=== PATIENT | female | born 1970 ===

== ENCOUNTER 2021-09-04 06:58 | Day surgery (SDC) | payer OTHER ==
[~2021-09-04] VITALS: Ht 157.5 cm; Wt 56.7 kg
[~2021-09-04 06:58] MED LIST: ARMOUR THYROID30 M1 PO; BIOTIN5000 MCG PO; ENDOMETRIN100 MG PO; MELATONIN1 MG PO; PROBIOTIC1 EAC4 PO; VITAMIN C100 MG PO; VITAMIN D PO
== END 2021-09-04 16:00 | disposition home or self-care (01) ==
LOC: CIR.AMB 06:58
PROVIDERS: ATTEND Orthopaedic Surgery Hand Surgery
DX: T84.89XA Other specified complication of internal orthopedic prosthetic devices, implants and grafts, initial encounter (principal); F17.210 Nicotine dependence, cigarettes, uncomplicated; Z20.822 Contact with and (suspected) exposure to COVID-19